=== PATIENT | female | born 1990 | race African-American/Black ===

== ENCOUNTER 2018-08-12 11:37 | Emergency (ER) | payer OTHER ==
[~2018-08-12] VITALS: Ht 180.3 cm; Wt 75.0 kg
[2018-08-12 11:44] VITALS: BP 107/59; TEMP 98.2
[2018-08-12] MEDS ORDERED: HARD NAILS 2.51 CAP (12:04)
[2018-08-12 13:18] VITALS: PULSE 78
== END 2018-08-12 13:18 | disposition home or self-care (01) ==
LOC: COL.ER 11:37
DX: S23.3XXA Sprain of ligaments of thoracic spine, initial encounter (principal); Z87.891 Personal history of nicotine dependence; V49.50XA Passenger injured in collision with unspecified motor vehicles in traffic accident, initial encounter